=== PATIENT | male | born 2000 | race American Indian/Alaskan Native ===

== ENCOUNTER 2021-04-22 15:23 | Emergency (ER) | payer SELFPAY ==
[2021-04-22 17:15] VITALS: BP 128/74
--- NOTE | 2021-04-22 17:52 | Emergency Department Report ---
- General Chief complaint: Skin Rash Stated complaint: PAIN IN PRIVATE AREA Time Seen by Provider: 04/22/21 17:42 Source: patient Mode of arrival: Ambulatory Limitations: No Limitations - History of Present Illness Initial comments: Patient is a 20-year-old male presents emergency room complaints of a painful rash to the penis that began yesterday. Patient states 4 days ago he had unprotected sexual intercourse with a female. He denies any penile discharge, dysuria, pain or swelling the testicles, fever, vomiting. No past medical history. No allergies medications. - Related Data Previous Rx's Medication Instructions Recorded Last Taken Type Acyclovir 400 mg PO TID 7 Days #21 tab 04/22/21 Unknown Rx Allergies Allergy/AdvReac Type Severity Reaction Status Date / Time No Known Allergies Allergy Verified 04/22/21 17:12 Abscess Boil HPI - HPI Chief Complaint: Skin Rash Stated Complaint: PAIN IN PRIVATE AREA Time Seen by Provider: 04/22/21 17:42 Home Medications: Previous Rx's Medication Instructions Recorded Last Taken Type Acyclovir 400 mg PO TID 7 Days #21 tab 04/22/21 Unknown Rx Allergies/Adverse Reactions: Allergies Allergy/AdvReac Type Severity Reaction Status Date / Time No Known Allergies Allergy Verified 04/22/21 17:12 ED Review of Systems ROS: Stated complaint: PAIN IN PRIVATE AREA Other details as noted in HPI Comment: All other systems reviewed and negative ED Past Medical Hx - Past Medical History Previous Medical History?: No - Surgical History Past Surgical History?: No - Medications Home Medications: Home Medications Medication Instructions Recorded Confirmed Last Taken Type Acyclovir 400 mg PO TID 7 Days #21 tab 04/22/21 Unknown Rx ED Physical Exam - General Limitations: No Limitations General appearance: alert, in no apparent distress - Head Head exam: Present: atraumatic, normocephalic - Eye Eye exam: Present: normal appearance - ENT ENT exam: Present: mucous membranes moist - exam: Present: other (inside sales advisor: JORGE Herrera, there are a couple small group vesicles to the left side of the penile shaft, no ulceration, no testicular ttp, no scrotal edema, normal testicular lie, normal cremasteric reflex) - Neurological Exam Neurological exam: Present: alert, oriented X3 - Psychiatric Psychiatric exam: Present: normal affect, normal mood - Skin Skin exam: Present: warm, dry ED Course Vital Signs 04/22/21 17:13 Temperature 98.6 F Pulse Rate 51 L Respiratory 16 Rate Blood Pressure 128/74 [Left] O2 Sat by Pulse 99 Oximetry ED Medical Decision Making - Medical Decision Making Patient is a 20-year-old male presents emergency room complaints of a painful rash to the penis that began yesterday. Patient states 4 days ago he had unprotected sexual intercourse with a female. He denies any penile discharge, dysuria, pain or swelling the testicles, fever, vomiting. No past medical history. No allergies medications. Vitals are stable. On exam:inside sales advisor: JORGE Herrera, there are a couple small group vesicles to the left side of the penile shaft, no ulceration, no testicular ttp, no scrotal edema, normal testicular lie, normal cremasteric reflex. Examination could be consistent with genital herpes. Discussed findings with patient. Advised patient Please take medication as prescribed. Please follow-up with the clinic or the health department and have a full STD panel performed including herpes virus. Please have any partner tested and treated as well. Avoid sexual intercourse. Return to emergency room for any new or worsening symptoms. Critical care attestation.: If time is entered above; I have spent that time in minutes in the direct care of this critically ill patient, excluding procedure time. ED Disposition Clinical Impression: Unprotected sexual intercourse, Penile lesion Disposition: HOME / SELF CARE / HOMELESS Is pt being admited?: No Does the pt Need Aspirin: No Condition: Stable Instructions: Genital Herpes, Safe Sex Additional Instructions: Please take medication as prescribed. Please follow-up with the clinic or the health department and have a full STD panel performed including herpes virus. Please have any partner tested and treated as well. Avoid sexual intercourse. Return to emergency room for any new or worsening symptoms. walk in clinic: [facility] Address: [address] [place] [id number] Prescriptions: Acyclovir 400 mg PO TID 7 Days #21 tab Referrals: [facility] [Provider Group] - 3-5 Days [facility] [Outside] - 3-5 Days Time of Disposition: 17:50 Print Language: MALTESE
== END 2021-04-22 18:00 | disposition home or self-care (01) ==
LOC: ED 15:23
DX: N48.89 Other specified disorders of penis (principal); A64 Unspecified sexually transmitted disease
CPT/HCPCS: 99282